=== PATIENT | female | born 1990 | race African-American/Black ===

== ENCOUNTER 2024-08-13 16:46 | Emergency (ER) | payer BC, MEDICAID ==
[~2024-08-13] VITALS: Ht 180.3 cm; Wt 68.0 kg
[2024-08-13 16:50] VITALS: BP 133/83; PULSE 103; RESP 20; TEMP 36.7; O2SAT 100
== END 2024-08-13 17:56 | disposition left against medical advice (07) ==
LOC: ER 16:46
DX: T78.1XXA Other adverse food reactions, not elsewhere classified, initial encounter (principal); Z91.010 Allergy to peanuts; X58.XXXA Exposure to other specified factors, initial encounter
CPT/HCPCS: 99283